=== PATIENT | male | born 1975 | race Caucasian/White ===

== ENCOUNTER 2018-10-07 23:35 | Emergency (ER) | payer OTHER ==
[2018-10-07 23:42] VITALS: RESP 18
[2018-10-08] MEDS ORDERED: ACETAMINOPHEN TAB 325 MG TAB PO STA (00:45)
[2018-10-08] MEDS ORDERED: CYCLOBENZAPRINE 10MG STARTER 3 TAB BTL PO STA (00:45)
--- NOTE | 2018-10-08 00:48 | ED ---
Back Pain HPI - General Source: patient Limitations: no limitations <Maylin Pedroza - Last Filed: 10/08/18 01:37> <Sabina Ponce - Last Filed: 10/08/18 02:23> - General Chief Complaint: Back Pain/Injury Stated Complaint: Sciatic Pain Time Seen by Provider: 10/07/18 23:54 - History of Present Illness Initial Comments: 43-year-old male who has past medical history of chronic low back pain presenting today for chief complaint of low back pain x 1 hour. Patient states that he has chronic low back pain, frequently experiencing acute exacerbations every couple months. Patient states last time he had experienced back pain was 4-5 months ago. Patient states that while at work this evening he lifted a large item over 100 pounds and noticed significant pain in his low back. Patient states the pain radiated down his left leg. Patient states that with his chronic back pain this occurs at times. Patient denies any loss of bowel bladder control, urinary retention muscle weakness or loss sensation of the lower extremities. Patient states the pain as a sharp pain that increases with movement or rotation of the back. Patient denies IV drug use, fever, chills or night sweats, he denies history of cancer. Patient is able to upon arrival patient is ambulatory. No signs of acute distress. Remaining review of systems negative, patient denies any recent shortness of breath, chest pain, back pain, abdominal pain, nausea or vomiting, numbness. dysuria or hematuria, constipation or diarrhea, headaches or visual changes, or any other complaints. (Maylin Pedroza) - Related Data Previous Rx's Medication Instructions Recorded Cyclobenzaprine [Flexeril] 10 mg PO TID 7 Days #21 tab 10/08/18 predniSONE 20 mg PO BID 5 Days #10 tab 10/08/18 Allergies Allergy/AdvReac Type Severity Reaction Status Date / Time No Known Allergies Allergy Verified 10/07/18 23:41 Review of Systems ROS Other: All systems not noted in ROS Statement are negative. <Maylin Pedroza - Last Filed: 10/08/18 01:37> ROS Other: All systems not noted in ROS Statement are negative. <Sabina Ponce - Last Filed: 10/08/18 02:23> ROS Statement: Those systems with pertinent positive or pertinent negative responses have been documented in the HPI. Past Medical History Additional Past Medical History / Comment(s): tricuspid regurgitation History of Any Multi-Drug Resistant Organisms: None Reported Past Surgical History: No Surgical Hx Reported Past Psychological History: ADD/ADHD Smoking Status: Current every day smoker Past Alcohol Use History: None Reported Past Drug Use History: None Reported <Maylin Pedroza - Last Filed: 10/08/18 01:37> General Exam Limitations: no limitations <Maylin Pedroza - Last Filed: 10/08/18 01:37> - General Exam Comments Initial Comments: General: The patient is awake and alert, in no distress, and does not appear acutely ill. Eye: Pupils are equal, round and reactive to light, extra-ocular movements are intact. No nystagmus. There is normal conjunctiva bilaterally. No signs of icterus. Ears, nose, mouth and throat: There are moist mucous membranes and no oral lesions. Neck: The neck is supple, there is no tenderness or JVD. Cardiovascular: There is a regular rate and rhythm. No murmur, rub or gallop is appreciated. Respiratory: Lungs are clear to auscultation, respirations are non-labored, breath sounds are equal. No wheezes, stridor, rales, or rhonchi. Gastrointestinal: Soft, non-distended, non-tender abdomen without masses or organomegaly noted. There is no rebound or guarding present. Musculoskeletal: Normal ROM, no tenderness of the lower extremities equal comparison bilaterally. Strength 5/5 of the lower extremities equal comparison bilaterally. Sensation intact of the lower extremities equal comparison bilaterally including the saddle region. DP pulses equal bilaterally 2+. Patient has paravertebral as well as mild midline tenderness palpation of the lumbar spine. No tenderness to palpation of thoracic or cervical.Inspection of the thoracic lumbar and cervical spine. Neurological: A&O x 3. CN II-XII intact, There are no obvious motor or sensory deficits. Coordination appears grossly intact. Speech is normal. Skin: Skin is warm and dry and no rashes or lesions are noted. Psychiatric: Cooperative, appropriate mood & affect, normal judgment. (Maylin Pedroza) Course Vital Signs 10/07/18 10/08/18 23:38 01:03 Temperature 99 F 98 F Pulse Rate 84 78 Respiratory 18 18 Rate Blood Pressure 138/92 138/90 O2 Sat by Pulse 97 97 Oximetry Medical Decision Making <Maylin Pedroza - Last Filed: 10/08/18 01:37> <Sabina Ponce - Last Filed: 10/08/18 02:23> - Medical Decision Making Well-appearing 43-year-old male presenting for acute on chronic low back pain. Patient's history of lifting heavy object. Patient has chronic radicular symptoms of the left leg, states that increased tonight. Patient has no signs concerning for cauda equina. I discussed imaging studies with patient at this time patient would like to forego imaging studies. At this time do not feel imaging studies altered patient's course of treatment. Patient will be discharged with a steroid, instruction to use ibuprofen Tylenol as well as a muscle relaxer. Patient is was instructed to follow-up with orthopedic surgery for possibility of injections or physical therapy if symptoms persist. She is agreeable plan as well as discharge denies questions at this time. I discussed the case with her provider Dr. Ponce who is agreeable with plan as well as sure decision making. Patient discharged appearing well ambulatory. Vital signs revealing elevated blood pressure patient is to follow-up with primary care provider. The patient's discharge I did discuss return parameters patient verbalized understanding (Maylin Pedroza) I was available for consultation in the emergency department. The history and physical exam were done by the midlevel provider. I was consulted for this patient's care. I reviewed the case with the midlevel provider and based on their presentation of the patient, I agree with the assessment, medical decision making and plan of care as documented. (Sabina Ponce) Disposition Is patient prescribed a controlled substance at d/c from ED?: No Time of Disposition: 00:48 <Maylin Pedroza - Last Filed: 10/08/18 01:37> <Sabina Ponce - Last Filed: 10/08/18 02:23> Clinical Impression: Acute exacerbation of chronic low back pain Disposition: HOME SELF-CARE Condition: Good Instructions (If sedation given, give patient instructions): Acute Low Back Pain (ED), Chronic Back Pain (ED) Additional Instructions: Please use medication as discussed. Please follow-up with family doctor in the next 2 days please follow-up with orthopedic surgery if symptoms persist for greater than 1 week. Please return to emergency room if the symptoms increase or worsen or for any other concerns. Prescriptions: Cyclobenzaprine [Flexeril] 10 mg PO TID 7 Days #21 tab predniSONE 20 mg PO BID 5 Days #10 tab Referrals: None,Stated [Primary Care Provider] - 1-2 days Hugh Patiño DO [Doctor of Osteopathic Medicine] - 1-2 days
[2018-10-08 01:04] VITALS: BP 138/90; PULSE 78; TEMP 98
== END 2018-10-08 01:03 | disposition home or self-care (01) ==
LOC: EC 23:35
DX: G89.29 Other chronic pain (principal); M54.5 Low back pain; F17.200 Nicotine dependence, unspecified, uncomplicated
CPT/HCPCS: 99283

== ENCOUNTER 2021-03-25 07:47 | Emergency (ER) | payer OTHER ==
[2021-03-25 08:07] VITALS: RESP 18; TEMP 98.1
[2021-03-25] MEDS ORDERED: MORPHINE SULFATE 4 MG/ML SYRINGE IM STA (08:20)
--- NOTE | 2021-03-25 08:58 | XR ---
EXAMINATION TYPE: XR hand complete RT DATE OF EXAM: 03/25/2021 CLINICAL HISTORY: pain TECHNIQUE: Frontal, lateral and oblique images of the right hand are obtained. COMPARISON: None. FINDINGS: There is a comminuted fracture with intra-articular extension at the base of the fifth meta carpal. Displacement noted of approximately 3.7 mm. Soft tissue swelling noted at the fracture site. No additional fracture seen. IMPRESSION: There is a comminuted fracture with intra-articular extension at the base of the fifth metacarpal.
[2021-03-25] MEDS ORDERED: ACET/COD 300 MG/30 MG STARTER PACK 6 TAB BTL PO STA (09:29)
--- NOTE | 2021-03-25 09:31 | ED ---
Upper Extremity HPI - General Chief Complaint: Extremity Injury, Upper Stated Complaint: hand injury Time Seen by Provider: 03/25/21 08:13 Source: patient, RN notes reviewed Mode of arrival: ambulatory Limitations: no limitations - History of Present Illness Initial Comments: Patient is a 45-year-old male that presents to emergency department complaining of right hand pain. He notes that on Thursday he got drunk punched a stone wall. He notes that he had pain pulled his hand IT looks weird felt a crunching popping. He notes that it is swollen and tender today. He came in for evaluation because he does think he broke something. Patient was otherwise a well-appearing 45-year-old male in no apparent distress or pain. He noted that at rest the pain was approximately a 6 out of 10 if he tried moving it went up to a 10. He denied any numbness or tingling in his right hand. He denied any chest pain shortness of breath headache nausea vomiting diarrhea constipation fever fatigue chills. - Related Data Previous Rx's Medication Instructions Recorded Cyclobenzaprine [Flexeril] 10 mg PO TID 7 Days #21 tab 10/08/18 predniSONE [Deltasone] 20 mg PO BID 5 Days #10 tab 10/08/18 Allergies Allergy/AdvReac Type Severity Reaction Status Date / Time No Known Allergies Allergy Verified 03/25/21 08:07 Review of Systems ROS Statement: Those systems with pertinent positive or pertinent negative responses have been documented in the HPI. ROS Other: All systems not noted in ROS Statement are negative. Past Medical History Past Medical History: No Reported History Additional Past Medical History / Comment(s): tricuspid regurgitation History of Any Multi-Drug Resistant Organisms: None Reported Past Surgical History: No Surgical Hx Reported Past Psychological History: ADD/ADHD Smoking Status: Vaper Past Alcohol Use History: None Reported Past Drug Use History: Marijuana General Exam Limitations: no limitations General appearance: alert, in no apparent distress Head exam: Present: atraumatic, normocephalic, normal inspection Eye exam: Present: normal appearance, PERRL, EOMI. Absent: scleral icterus, conjunctival injection, periorbital swelling Neck exam: Present: normal inspection Respiratory exam: Present: normal lung sounds bilaterally. Absent: respiratory distress, wheezes, rales, rhonchi, stridor Cardiovascular Exam: Present: regular rate, normal rhythm, normal heart sounds. Absent: systolic murmur, diastolic murmur, rubs, gallop, clicks Right Hand Wrist exam: Present: tenderness (Over the fifth metacarpal), swelling. Absent: normal inspection, full ROM (Secondary to pain), abrasion, laceration, ecchymosis, deformity, crepitus, dislocation Neurological exam: Present: alert, oriented X3 Psychiatric exam: Present: normal affect, normal mood Skin exam: Present: warm, dry, intact, normal color. Absent: rash Course Vital Signs 03/25/21 08:05 Temperature 98.1 F Pulse Rate 82 Respiratory 18 Rate Blood Pressure 129/61 O2 Sat by Pulse 98 Oximetry Procedures - Orthopedic Splinting/Casting Injury #1 Side: right Upper Extremity Injury Location: wrist, hand, finger Upper Extremity Immobilizer: ulnar gutter, Surinder wrap, synthetic pre-padded splint Medical Decision Making - Medical Decision Making 45-year-old male complaining of right hand pain after punching a wall on Thursday. X-ray the right hand, 4 mg of morphine ordered. X-ray shows a proximal comminuted fracture of the fifth metacarpal with intra- articular involvement. Splint applied. Patient can discharge home with follow-up to orthopedics. Case discussed with Dr. Lee. - Radiology Data Radiology results: report reviewed, image reviewed X-ray of the right hand: There is a comminuted fracture with intra-articular extension at the base of the fifth metacarpal. Disposition Clinical Impression: Fracture of fifth metacarpal bone of right hand Disposition: HOME SELF-CARE Condition: Stable Instructions (If sedation given, give patient instructions): Hand Fracture (ED) Additional Instructions: Please return to the Emergency Department if symptoms worsen or any other concerns. Follow-up with primary care as needed. Follow-up with orthopedics in the next 1-2 days. Take Tylenol 3 as prescribed. Is patient prescribed a controlled substance at d/c from ED?: No Referrals: Logan Stokes MD [Primary Care Provider] - 1-2 days Tyrone Mahoney PAC [PHYSICIAN FISHING VESSEL OPERATOR] - 1-2 days Time of Disposition: 09:31
[2021-03-25 09:50] VITALS: BP 125/77; PULSE 65
== END 2021-03-25 09:53 | disposition home or self-care (01) ==
LOC: EC 07:47
DX: S62.306A Unspecified fracture of fifth metacarpal bone, right hand, initial encounter for closed fracture (principal); F90.9 Attention-deficit hyperactivity disorder, unspecified type; F17.290 Nicotine dependence, other tobacco product, uncomplicated; F12.90 Cannabis use, unspecified, uncomplicated; W22.09XA Striking against other stationary object, initial encounter
CPT/HCPCS: 99283; 96372; 29125; 73130; J2270

== ENCOUNTER 2021-12-16 12:49 | Emergency (ER) | payer OTHER ==
[2021-12-16 12:58] VITALS: BP 124/62; PULSE 105; RESP 20; TEMP 98.3
[2021-12-16 13:58] LABS: Basophils % (A) 0 %; Eosinophils # (A) 0.2 k/uL (0-0.7); Eosinophils % (A) 2 %; HCT 44.7 % (39.0-53.0); HGB 14.1 gm/dL (13.0-17.5); Lymphocytes # (A) 2.2 k/uL (1.0-4.8); Lymphocytes % (A) 23 %; MCH 30.2 pg (25.0-35.0); MCHC 31.6 g/dL (31.0-37.0); MCV 95.6 fL (80.0-100.0); Mean Platelet Volume 7.2; Monocytes # (A) 0.4 k/uL (0-1.0); Monocytes % (A) 4 %; Neutrophils % (A) 71 %; Platelet Count 316 k/uL (150-450); RBC 4.67 m/uL (4.30-5.90); RDW 12.3 % (11.5-15.5); WBC 9.9 k/uL (3.8-10.6)
--- NOTE | 2021-12-16 14:11 | ED ---
General Adult HPI - General Chief complaint: Chest Pain Stated complaint: Chest pain/syncope Time Seen by Provider: 12/16/21 13:00 Source: patient Mode of arrival: ambulatory Limitations: no limitations - History of Present Illness Initial comments: 46-year-old male with past history of mild tricuspid regurgitation presents to the emergency department for chest pain. 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 States that he felt very lightheaded and passed out. States he was only out for a few seconds and this was witnessed by his boss who is not at bedside. He continued to work the rest of the day. He then reported that he had chest pain and his boss drove him to the hospital for evaluation. Denies history of coronary disease. Admits to stress testing which has been normal. Pain is described as a pressure sensation over the left side of his chest is not reproducible. No pleuritic pain. States that he has had this sensation before when he was low on potassium. Denies any recent lab draws. No other alleviating, he said dictating or modifying factors - Related Data Previous Rx's Medication Instructions Recorded Cyclobenzaprine [Flexeril] 10 mg PO TID 7 Days #21 tab 10/08/18 predniSONE [Deltasone] 20 mg PO BID 5 Days #10 tab 10/08/18 Allergies Allergy/AdvReac Type Severity Reaction Status Date / Time Penicillins Allergy Anaphylaxis Verified 12/16/21 12:59 Review of Systems ROS Statement: Those systems with pertinent positive or pertinent negative responses have been documented in the HPI. ROS Other: All systems not noted in ROS Statement are negative. Past Medical History Past Medical History: No Reported History Additional Past Medical History / Comment(s): tricuspid regurgitation History of Any Multi-Drug Resistant Organisms: None Reported Past Surgical History: No Surgical Hx Reported Past Psychological History: ADD/ADHD Smoking Status: Vaper Past Alcohol Use History: None Reported Past Drug Use History: Marijuana General Exam Limitations: no limitations General appearance: alert, in no apparent distress Head exam: Present: atraumatic, normocephalic, normal inspection Eye exam: Present: normal appearance, PERRL, EOMI. Absent: scleral icterus, conjunctival injection, periorbital swelling ENT exam: Present: normal exam, mucous membranes moist Neck exam: Present: normal inspection. Absent: tenderness, meningismus, lymphadenopathy Respiratory exam: Present: normal lung sounds bilaterally. Absent: respiratory distress, wheezes, rales, rhonchi, stridor Cardiovascular Exam: Present: regular rate, normal rhythm, normal heart sounds. Absent: systolic murmur, diastolic murmur, rubs, gallop, clicks GI/Abdominal exam: Present: soft, normal bowel sounds. Absent: distended, tenderness, guarding, rebound, rigid Extremities exam: Present: normal inspection, full ROM, normal capillary refill. Absent: tenderness, pedal edema, joint swelling, calf tenderness Back exam: Present: normal inspection Neurological exam: Present: alert, oriented X3, CN II-XII intact Psychiatric exam: Present: normal affect, normal mood Skin exam: Present: warm, dry, intact, normal color. Absent: rash Course Vital Signs 12/16/21 12:56 Temperature 98.3 F Pulse Rate 105 H Respiratory 20 Rate Blood Pressure 124/62 O2 Sat by Pulse 98 Oximetry EKG Findings - EKG Comments: EKG Findings:: EKG demonstrates sinus rhythm with short AZ interval. Rate of 96. AZ interval 112. QRS 86. QTC of 355. No acute ST segment elevations or depressions Medical Decision Making - Medical Decision Making Upon arrival patient is placed into room 2. Thorough history and physical exam was performed. IV access is established and laboratory studies are conducted. Potassium 3.4. Oral potassium placed. Chest x-ray demonstrates hyperinflation. No acute process. I did go back into the room to speak with the patient. Found that the patient had signed paperwork stating that he was leaving AGAINST MEDICAL ADVICE. Told the nursing staff that his "friend had overdosed" and that he needed to leave immediately. Patient instructed to return for further workup. - Lab Data Result diagrams: 12/16/21 13:32 12/16/21 13:32 Lab Results 12/16/21 12/16/21 12/16/21 Range/Units 13:32 13:32 13:32 WBC 9.9 (3.8-10.6) k/uL RBC 4.67 (4.30-5.90) m/uL Hgb 14.1 (13.0-17.5) gm/dL Hct 44.7 (39.0-53.0) % MCV 95.6 (80.0-100.0) fL MCH 30.2 (25.0-35.0) pg MCHC 31.6 (31.0-37.0) g/dL RDW 12.3 (11.5-15.5) % Plt Count 316 (150-450) k/uL MPV 7.2 Neutrophils % 71 % Lymphocytes % 23 % Monocytes % 4 % Eosinophils % 2 % Basophils % 0 % Neutrophils # 7.0 (1.3-7.7) k/uL Lymphocytes # 2.2 (1.0-4.8) k/uL Monocytes # 0.4 (0-1.0) k/uL Eosinophils # 0.2 (0-0.7) k/uL Basophils # 0.0 (0-0.2) k/uL PT 10.9 (9.0-12.0) sec INR 1.0 (<1.2) APTT 23.2 (22.0-30.0) sec Sodium 135 L (137-145) mmol/L Potassium 3.4 L (3.5-5.1) mmol/L Chloride 102 (98-107) mmol/L Carbon Dioxide 24 (22-30) mmol/L Anion Gap 9 mmol/L BUN 13 (9-20) mg/dL Creatinine 0.94 (0.66-1.25) mg/dL Est GFR (CKD-EPI)AfAm >90 (>60 ml/min/1.73 sqM) Est GFR (CKD-EPI)NonAf >90 (>60 ml/min/1.73 sqM) Glucose 203 H (74-99) mg/dL Calcium 8.7 (8.4-10.2) mg/dL Magnesium 1.7 (1.6-2.3) mg/dL Total Bilirubin 0.3 (0.2-1.3) mg/dL AST 26 (17-59) U/L ALT 22 (4-49) U/L Alkaline Phosphatase 129 H (38-126) U/L Troponin I (0.000-0.034) ng/mL Total Protein 6.6 (6.3-8.2) g/dL Albumin 3.9 (3.5-5.0) g/dL Lipase 103 (23-300) U/L 12/16/21 Range/Units 13:32 WBC (3.8-10.6) k/uL RBC (4.30-5.90) m/uL Hgb (13.0-17.5) gm/dL Hct (39.0-53.0) % MCV (80.0-100.0) fL MCH (25.0-35.0) pg MCHC (31.0-37.0) g/dL RDW (11.5-15.5) % Plt Count (150-450) k/uL MPV Neutrophils % % Lymphocytes % % Monocytes % % Eosinophils % % Basophils % % Neutrophils # (1.3-7.7) k/uL Lymphocytes # (1.0-4.8) k/uL Monocytes # (0-1.0) k/uL Eosinophils # (0-0.7) k/uL Basophils # (0-0.2) k/uL PT (9.0-12.0) sec INR (<1.2) APTT (22.0-30.0) sec Sodium (137-145) mmol/L Potassium (3.5-5.1) mmol/L Chloride (98-107) mmol/L Carbon Dioxide (22-30) mmol/L Anion Gap mmol/L BUN (9-20) mg/dL Creatinine (0.66-1.25) mg/dL Est GFR (CKD-EPI)AfAm (>60 ml/min/1.73 sqM) Est GFR (CKD-EPI)NonAf (>60 ml/min/1.73 sqM) Glucose (74-99) mg/dL Calcium (8.4-10.2) mg/dL Magnesium (1.6-2.3) mg/dL Total Bilirubin (0.2-1.3) mg/dL AST (17-59) U/L ALT (4-49) U/L Alkaline Phosphatase (38-126) U/L Troponin I <0.012 (0.000-0.034) ng/mL Total Protein (6.3-8.2) g/dL Albumin (3.5-5.0) g/dL Lipase (23-300) U/L Disposition Clinical Impression: Chest pain Disposition: Left Against Medical Advice Condition: Undetermined Instructions (If sedation given, give patient instructions): Chest Pain (ED) Is patient prescribed a controlled substance at d/c from ED?: No Referrals: Logan Stokes MD [Primary Care Provider] - 1-2 days Time of Disposition: 15:04
[2021-12-16 14:12] LABS: ALT 22 U/L (4-49); AST 26 U/L (17-59); African American GFR (CKD) >90 (>60 ml/min/1.73 sqM); Albumin 3.9 g/dL (3.5-5.0); Alkaline Phosphatase 129 U/L (38-126); Anion Gap 9 mmol/L; Blood Urea Nitrogen 13 mg/dL (9-20); Calcium 8.7 mg/dL (8.4-10.2); Carbon Dioxide 24 mmol/L (22-30); Chloride 102 mmol/L (98-107); Glucose 203 mg/dL (74-99); Lipase 103 U/L (23-300); Magnesium 1.7 mg/dL (1.6-2.3); Non-African American GFR(CKD) >90 (>60 ml/min/1.73 sqM); Potassium 3.4 mmol/L (3.5-5.1); Sodium 135 mmol/L (137-145); Total Bilirubin 0.3 mg/dL (0.2-1.3); Total Protein 6.6 g/dL (6.3-8.2)
[2021-12-16] MEDS ORDERED: POTASSIUM CHLORIDE ER 20 MEQ TAB.ER PO STA (14:17)
[2021-12-16 14:23] LABS: Partial Thromboplastin Time 23.2 sec (22.0-30.0); Prothrombin Time 10.9 sec (9.0-12.0)
--- NOTE | 2021-12-16 14:24 | XR ---
EXAMINATION TYPE: XR chest 2V DATE OF EXAM: 12/16/2021 COMPARISON: 03/15/2010 HISTORY: 46-year-old male with chest pain and syncope TECHNIQUE: PA and lateral views FINDINGS: Heart normal size. Aorta and pulmonary vasculature within normal limits. Hyperinflation. No consolida tion or pleural effusion. IMPRESSION: Hyperinflation may relate to depth of inspiration or underlying COPD. Clinically correlate. Otherwise , no acute process seen.
== END 2021-12-16 15:05 | disposition left against medical advice (07) ==
LOC: EC 12:49
DX: R07.89 Other chest pain (principal); F17.209 Nicotine dependence, unspecified, with unspecified nicotine-induced disorders; Z88.0 Allergy status to penicillin
CPT/HCPCS: 36415; 71046; 80053; 83690; 83735; 84484; 85025; 85610; 85730; 93005; 99285

== ENCOUNTER 2023-11-23 12:23 | Observation (INO) | payer OTHER ==
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
[2023-11-23 12:43] VITALS: BP 147/81; PULSE 75; RESP 16; TEMP 98.1
[2023-11-23 12:59] LABS: Basophils # (A) 0.1 k/uL (0-0.2); Basophils % (A) 1 %; Eosinophils # (A) 0.2 k/uL (0-0.7); Eosinophils % (A) 2 %; HCT 48.8 % (39.0-53.0); HGB 15.7 gm/dL (13.0-17.5); Lymphocytes # (A) 1.6 k/uL (1.0-4.8); Lymphocytes % (A) 15 %; MCH 30.7 pg (25.0-35.0); MCHC 32.2 g/dL (31.0-37.0); MCV 95.1 fL (80.0-100.0); Mean Platelet Volume 7.5; Monocytes # (A) 0.6 k/uL (0-1.0); Monocytes % (A) 5 %; Neutrophils # (A) 8.4 k/uL (1.3-7.7); Neutrophils % (A) 77 %; Platelet Count 312 k/uL (150-450); RBC 5.13 m/uL (4.30-5.90); RDW 12.2 % (11.5-15.5); WBC 10.9 k/uL (3.8-10.6)
[2023-11-23 13:13] LABS: Partial Thromboplastin Time 25.2 sec (22.0-30.0); Prothrombin Time 10.8 sec (10.0-12.5)
[2023-11-23 13:17] LABS: ALT 30 U/L (4-49); AST 29 U/L (17-59); African American GFR (CKD) >90 (>60 ml/min/1.73 sqM); Albumin 4.2 g/dL (3.5-5.0); Alkaline Phosphatase 140 U/L (38-126); Anion Gap 7 mmol/L; Blood Urea Nitrogen 9 mg/dL (9-20); Calcium 9.2 mg/dL (8.4-10.2); Carbon Dioxide 28 mmol/L (22-30); Chloride 103 mmol/L (98-107); Glucose 108 mg/dL (74-99); Magnesium 1.9 mg/dL (1.6-2.3); Non-African American GFR(CKD) >90 (>60 ml/min/1.73 sqM); Potassium 3.6 mmol/L (3.5-5.1); Sodium 138 mmol/L (137-145); Total Bilirubin 0.4 mg/dL (0.2-1.3); Total Protein 7.3 g/dL (6.3-8.2)
--- NOTE | 2023-11-23 13:56 | XR ---
EXAMINATION TYPE: XR chest 2V DATE OF EXAM: 11/23/2023 COMPARISON: 12/16/2021 HISTORY: Chest pain TECHNIQUE: Frontal and lateral views of the chest are obtained. FINDINGS: There is no focal air space opacity. No evidence for pneumothorax. No pleural effusion. The cardiac silhouette size is within normal limits. The osseous structures are grossly intact. IMPRESSION: 1. No acute cardiopulmonary process.
[2023-11-23 14:35] LABS: Cocaine Screen,Urine Not Detected (NotDetected); Phencyclidine Screen,Urine Not Detected (NotDetected)
[2023-11-23 14:36] LABS: Amphetamine Screen,Urine Detected (NotDetected); Barbiturate Screen,Urine Not Detected (NotDetected); Benzodiazepines Screen,Urine Not Detected (NotDetected); Methadone Screen, Urine Not Detected (NotDetected); Opiate Screen,Urine Not Detected (NotDetected); Oxycodone Screen, Urine Not Detected (NotDetected); Tricyclic Antidepressant,Urine Not Detected (NotDetected); Urn Cannabinoid Scrn Detected (NotDetected)
[2023-11-23] MEDS ORDERED: ASPIRIN 81 MG PO STA (15:30)
[2023-11-23] MEDS ORDERED: NITROGLYCERIN SL TABS 0.4 MG TAB SUBLINGUAL PRN (15:30)
[2023-11-23] MEDS ORDERED: NON FORMULARY DRUG (Dextroamphetamine/Amphetamine [Adderall] 30 MG Tablet) PO SCH (21:00)
[2023-11-24] MEDS ORDERED: ASPIRIN 325 MG TAB PO SCH (09:00)
== END 2023-11-23 15:52 | disposition left against medical advice (07) ==
LOC: EC 12:23 → 6NMEDSUR 15:34
PROVIDERS: ADMIT Family Medicine; ATTEND Family Medicine
DX: R07.89 Other chest pain (principal); R55 Syncope and collapse; M79.602 Pain in left arm; F12.90 Cannabis use, unspecified, uncomplicated; F17.290 Nicotine dependence, other tobacco product, uncomplicated; Z79.899 Other long term (current) drug therapy; Z88.0 Allergy status to penicillin
CPT/HCPCS: 99285; 36415; 93005; 85379; 80053; 83735; 84484; 85025; 85610; 85730; 80306; 71046; G0378

== ENCOUNTER → 2024-02-17 | Outpatient (CLI) | payer OTHER ==
--- NOTE | 2024-03-30 06:05 | XR ---
Patient: Nicholas Puente P Ordering Physician: Unknown, Unknown ID: [id number] Phone, Pager: Phone: N/A Pager: N/A : 1975 Age/Gender: 48Y, M Primary Location: N/A Procedure: XR cervical spine comp Study Date: 02/17/2024 8:54:00 AM EXAMINATION TYPE: XR cervical spine comp DATE OF EXAM: 03/06/2024 10:50 AM CLINICAL INDICATION: DX CODE OF M54.2 pain COMPARISON: None TECHNIQUE: The cervical spine was imaged in frontal, lateral, odontoid and bilateral oblique. FINDINGS: The osseous structures show normal alignment without evidence of an acute fracture. There are osteoph ytes noted throughout the cervical spine on the anterior and lateral aspects of the vertebral bodies. The intervertebral disk spaces are narrowed at multiple levels. Pedicles are intact. Soft tissues a re within normal limits. The odontoid appears intact. Neural foraminal stenosis worse at C4-C5 and C5 -C6 on the right with moderate to severe C5-C6 and moderate C4-C5. IMPRESSION: 1. No fracture or dislocation. 2. Mild degenerative disc disease changes of the cervical spine.
== END | disposition home or self-care (01) ==
LOC: RADXRMAIN 08:46
PROVIDERS: ATTEND Family Medicine
DX: M50.30 Other cervical disc degeneration, unspecified cervical region (principal)
CPT/HCPCS: 72050